=== PATIENT | male | born 1950 | race Caucasian/White ===

== ENCOUNTER 2019-05-26 09:54 | Observation (INO) | payer OTHER ==
[~2019-05-26] VITALS: Ht 165.1 cm; Wt 77.1 kg
[2019-05-26 09:58] VITALS: Ht 165.1 cm; Wt 77.1 kg
[2019-05-26 10:54] LABS: BASOPHIL % 0.5 % (0-2); PLATELET COUNT 168 x10^3mcL (130-400)
[2019-05-26 11:03] LABS: CARBON DIOXIDE 24.3 mmol/L (21-32); CREATININE SERUM 2.2 mg/dL (0.7-1.3); POTASSIUM SERUM 4.7 mmol/L (3.5-5.1); RED CELL DISTRIBUTION WIDTH 15.5 % (11.5-14.5)
[2019-05-26 11:15] LABS: BILIRUBIN TOTAL 0.5 mg/dL (0.20-1.00); T4(THYROXINE) 6.9 ug/dL (4.7-13.3); TOTAL PROTEIN, SERUM 8.2 g/dL (6.4-8.2)
[2019-05-26 11:17] LABS: ALBUMIN 3.3 g/dL (3.4-5.0)
[2019-05-26 11:57] LABS: microscopic required? NO
[2019-05-26 12:19] LABS: urine erythrocyte NEGATIVE (NEGATIVE)
[2019-05-26 13:23] VITALS: BP 167/88
[2019-05-26] MEDS ORDERED: MIRAPEX0.25 MG PO (13:48)
[2019-05-26] MEDS ORDERED: NOR5 PO (13:48)
[2019-05-26] MEDS ORDERED: NEU300 PO (13:49)
[2019-05-26] MEDS ORDERED: ROC0.5 PO (13:50)
[2019-05-26] MEDS ORDERED: DRISDOL50000 IU PO (13:51)
[2019-05-26] MEDS ORDERED: MAGNESIUM OXID400 MG PO (13:51)
[2019-05-26] MEDS ORDERED: PROTONIX20 MG PO (13:52)
[2019-05-26] MEDS ORDERED: ATORVASTATIN CA40 M1 PO (13:52)
[2019-05-26] MEDS ORDERED: COREG12.5 MG PO (13:54)
[2019-05-26 16:50] VITALS: BP 143/69; BP 93/61
[2019-05-26 20:45] VITALS: BP 138/84
[2019-05-27 04:10] VITALS: BP 132/71
[2019-05-27 09:42] VITALS: BP 134/74
[2019-05-27 11:10] VITALS: BP 134/74
[2019-05-27 11:18] VITALS: BP 134/74
== END 2019-05-27 13:30 | disposition home or self-care (01) | DRG 638 ==
LOC: ED 09:54 → DU 11:41
PROVIDERS: Emergency Medicine; ADMIT Internal Medicine Pulmonary Disease
DX: E11.65 Type 2 diabetes mellitus with hyperglycemia (principal); E87.1 Hypo-osmolality and hyponatremia; N17.9 Acute kidney failure, unspecified; N18.3 Chronic kidney disease, stage 3 (moderate); I12.9 Hypertensive chronic kidney disease with stage 1 through stage 4 chronic kidney disease, or unspecified chronic kidney disease; E11.22 Type 2 diabetes mellitus with diabetic chronic kidney disease; Z79.4 Long term (current) use of insulin; Z91.11 Patient's noncompliance with dietary regimen; Z68.34 Body mass index [BMI] 34.0-34.9, adult
CPT/HCPCS: 82962; 90732; G0378; J1644; J1815; J7030; Q0092